=== PATIENT | male | born 1990 | race Caucasian/White ===

== ENCOUNTER 2018-12-04 22:52 | Emergency (ER) | payer MEDICAID ==
[~2018-12-04] VITALS: Ht 152.4 cm; Wt 47.7 kg
[2018-12-04 22:54] VITALS: Ht 152.4 cm; Wt 47.7 kg
[2018-12-04 23:34] LABS: APPEARANCE CLEAR (CLEAR); BILIRUBIN NEGATIVE (NEGATIVE); COLOR YELLOW (YELLOW); GLUCOSE NEGATIVE (NEGATIVE); KETONE MODERATE mg/dL (NEGATIVE); NITRITE NEGATIVE (NEGATIVE); PROTEIN NEGATIVE (NEGATIVE); UROBILINOGEN NORMAL (NORMAL)
[2018-12-05] MEDS ORDERED: FLAGYL500 MG PO (02:06)
[2018-12-05] MEDS ORDERED: CIPRO500 MG PO (02:06)
[2018-12-05] MEDS ORDERED: ZOFRAN8 MG PO (02:06)
[2018-12-05 02:13] VITALS: BP 126/78
== END 2018-12-05 02:16 | disposition home or self-care (01) ==
LOC: D.ER 22:52
PROVIDERS: Emergency Medicine
DX: K52.9 Noninfective gastroenteritis and colitis, unspecified (principal); F17.210 Nicotine dependence, cigarettes, uncomplicated